=== PATIENT | male | born 2000 | race Two or more races ===

== ENCOUNTER 2025-02-09 19:50 | Emergency (ER) | payer SELFPAY ==
--- NOTE | 2025-02-09 20:14 | PC.NURSE ---
NO ANSWER IN LOBBY WHEN CALLED FOR VITAL SIGNS
--- NOTE | 2025-02-09 20:29 | PC.NURSE ---
NO ANSWER IN LOBBY WHEN CALLED FOR VITAL SIGNS
[2025-02-09 21:37] VITALS: BP 156/98; PULSE 116; RESP 18; TEMP 37.6; O2SAT 98; BMI 34.9
--- NOTE | 2025-02-09 21:52 | PD.EDADULT ---
ED General RME/HPI General Chief complaint: Alcohol Stated complaint: INTOXICATED, HALLUCINATING Time Seen by Provider: 02/09/25 21:51 Arrival date/time: 02/09/25 19:50 CC: Bizarre behavior HPI patient presents to the ER finally signed and after the first visit to the ER waiting room. The patient has been drinking beer for years. Family member stated the last 3 days his behavior has become much more bizarre. He has decreased the amount of alcohol he is drinking but they are not sure what else he is taking. The patient has not been violent or threatening but he has had emotional outbursts and cannot be controlled. He is responding to all questions with nodding whether appropriate responses are not. Patient is observed ambulating but is not answering questions appropriately. Related Data Allergies Allergy/AdvReac Type Severity Reaction Status Date / Time No Known Allergies Allergy Verified 02/09/25 19:54 Review of Systems Review of Systems ROS Unobtainable: unobtainable due to mental status Past Medical History Social History SMOKING STATUS: Never smoker ED Exam Narrative Physical exam: [General: Obese appears not in any acute distress Head normocephalic HEENT: PERRLA EOMs are intact tracking mouth pink moist membranes uvula is midline swallow symmetrical. All the subsystems of ATTR within acceptable limits Neck is supple nontender Chest equal chest rise nontender to palpation Respiratory: Clear to auscultation no wheezes crackles or rubs CV: Rate rhythm is regular, tachycardic, no murmurs rubs or clicks Abdomen is distended secondary to body habitus soft nontender no masses positive bowel sounds all 4 quadrants Back: No CVA tenderness no spinous process tenderness from cervical spine thoracic and lumbar spine Skin: Intact no petechiae rash induration ulceration or crepitus Extremities: Moving all extremity against resistance cap refill less than 2 seconds neurosensory intact Neuro: Awake alert responding to all questions with nodding yes even though the questions were not related to a yes response. Course Quality Measures none Orders Category Date Time Status CT head/brain wo con Stat Exams 02/09/25 22:48 Completed Alcohol, Blood Medical Stat Lab 02/09/25 22:04 Completed CBC Stat Lab 02/09/25 22:04 Completed CMP [Comprehensive Metabolic Panel] Stat Lab 02/09/25 22:04 Completed Drug Screen,Urine Stat Lab 02/09/25 22:42 Completed PT [Prothrombin Time with INR] Stat Lab 02/09/25 22:04 Completed PTT [Partial Thromboplastin Time] Stat Lab 02/09/25 22:04 Completed Diazepam Inj [Valium Inj] Med 02/09/25 23:03 Discontinued 10 mg IM X1 ONE Vital Signs Vital signs: Vital Signs Temperature 99.7 F 02/09/25 21:37 Pulse Rate 116 H 02/09/25 21:37 Respiratory Rate 18 02/09/25 21:37 Blood Pressure 156/98 H 02/09/25 21:37 Pulse Oximetry (%) 98 02/09/25 21:37 Oxygen Delivery Method Room Air 02/09/25 21:37 Discharge Plan Plan Patient Disposition: HOME (Self Care) Discharge Disposition comment: Stable for discharge home Patient condition on transfer: Stable Prescriptions/Referrals Referrals: [facility] [Provider Group] - In 1 week Problem List Clinical Impression: Agitation Patient/Caregiver Discharge Instructions Discharge Activity: activity as tolerated Education Materials: Alcoholism: Myths and Facts, Alcoholism Resources, Alcoholism: Getting Help, Alcohol Addiction Additional Instructions: Please return to the emergency department if you have any worsening or any further medical problems and we will help you. Otherwise you should follow-up with your primary care doctor within the next several days. When you are ready to get sober you should return to this ER and we can help you. Print Language: Icelandic Stand Alone Forms: Tiffanie Award Info., Patient Portal Info Letter MDM Clinical Information Provided by: patient and family Medical Records reviewed [facility] Meds/Rx considered, not ordered None Labs/Rad/Tests considered, not ordered None Medication Administration(s) Medication Administration History Discontinued Medications Diazepam (Diazepam Inj 5 Mg/Ml Vial 2 Ml) 10 mg IM X1 ONE Stop: 02/09/25 23:04 Last Admin: 02/10/25 00:28 Dose: 10 mg Documented By: ZANE
[2025-02-09 22:17] LABS: Basophils # (Auto) 0.1 Thou/mm3 (0.0-0.2); Basophils % (Auto) 0 % (0-2.5); Eosinophils % (Auto) 0 % (0-10); Hemoglobin 17.4 g/dL (13.5-16.0); Immature Granulocytes % (Auto) 1 % (0-0); Immature Granulocytes Auto 0.06 Thou/mm3 (0.00-0.00); Lymphocytes % (Auto) 8 % (10-50); Mean Corpuscular HGB Conc 37.8 g/dl (31.0-37.0); Mean Corpuscular Hemoglobin 32.2 pg (25.0-35.0); Mean Corpuscular Volume 85 fL (80-100); Monocytes # (Auto) 0.8 Thou/mm3 (0.0-0.8); Monocytes % (Auto) 6 % (0-12); Neutrophils # (Auto) 11.3 Thou/mm3 (1.8-7.7); Neutrophils % (Auto) 85 % (37-80); Nucleated Red Blood Cell % 0 /100 WBC (0); Platelet Count 209 Thou/mm3 (140-440); RDW Standard Deviation 38.8 fL (35.1-43.9); Red Blood Count 5.41 Miln/mm3 (4.50-5.90); White Blood Count 13.3 Thou/mm3 (3.8-10.6)
[2025-02-09 22:27] LABS: Partial Thromboplastin Time 23.7 Seconds (22.0-36.0); Prothrombin Time 11.4 Seconds (9.0-12.2)
[2025-02-09 22:31] LABS: Alanine Aminotransferase 56 U/L (10-49); Albumin, Serum 5.5 gm/dL (3.5-5.0); Albumin/Globulin Ratio 1.9 (1.2-2.2); Alcohol, Blood Medical < 3.0 mg/dL (0-10.0); Alkaline Phosphatase 67 U/L (46-116); Anion Gap 9 (7-16); Aspartate Amino Transferase 46 U/L (0-34); BUN/Creatinine Ratio 10 Ratio (12-20); Bilirubin,Total 2.4 mg/dL (0.3-1.2); Blood Urea Nitrogen 9 mg/dL (9-23); Calcium 10.9 mg/dL (8.3-10.6); Calcium (Corrected) 10.9 mg/dL (8.5-10.1); Carbon Dioxide 24.9 mMol/L (20.0-31.0); Chloride 100 mMol/L (98-107); Creatinine (Component) 0.9 mg/dL (0.6-1.3); Estimated Creatinine Clearance 145.6 mL/min (>60); Globulin 2.9 gm/dL (2.3-3.5); Glucose 112 mg/dL (74-106); Osmolality,Calculated 267 (275-295); Potassium 3.6 mMol/L (3.4-5.1); Sodium 134 mMol/L (136-145); Total Protein 8.4 gm/dL (5.7-8.2); eGFR > 60 See Note
--- NOTE | 2025-02-09 22:48 | XR_ITS ---
Examination: CT brain head without contrast. 2-D sagittal coronal reconstructions Date and time of exam:February 10, 2025 0054 hours INDICATIONS: Altered mental status today with hallucinations CTDI: vol (mGy):51.5 DLP: (mGycm):969 Technique: Multiple CT axial sections of the brain have been obtained, 5 mm slice thickness. Contrast has not been administered. 2-D sagittal, coronal reconstructions have been obtained Low dose protocols were performed. One or more of the following dose reduction techniques were used; automated exposure control, adjustment of the mA and/or KV according to patient size, use of iterative reconstruction technique. Findings: No significant ventricular enlargement. Intra-axial or extra-axial hemorrhage density is not seen. No mass effect or midline shift Basal cisterns are not remarkable. Fourth ventricle is midline. Cranial vault intact. Impression: Negative for acute hemorrhage, mass effect or midline shift
--- NOTE | 2025-02-09 23:05 | EDNOTE_ITS ---
Emergency Room Addendum <Diana Marks - Last Filed: 02/10/25 05:50> Addendum Narrative: 2300: Care assumed from Anirudh Shelby NP (emergency mid-level provider). Past medical, surgical, social and family history reviewed. Vitals and home medications reviewed. Results and treatment plan discussed. They will assume the care of the patient at this time and will follow the patient, pending Toxicology results. RADIOLOGY Head CT: Pending official radiology report. 0210: I have spoken with the patient and discussed today?s findings, in addition to providing specific details for the plan of care. Questions are answered and there is an agreement with the plan. Re-assessment at the time of disposition demonstrates that the patient is in no acute distress. The patient has remained stable throughout the entire ED visit and is without objective evidence for acute process requiring urgent intervention or hospitalization. The patient is stable for discharge; counseling is provided and documented as above, discussing symptomatic treatment and specific conditions for return. <Mabel Darien - Last Filed: 02/11/25 04:40> Addendum Narrative: 2300: Care assumed from Anirudh Shelby NP (emergency mid-level provider). Past medical, surgical, social and family history reviewed. Vitals and home medications reviewed. Results and treatment plan discussed. I will assume the care of the patient at this time and will follow the patient, pending toxicology results. UDS and Blood Alcohol are negative. RADIOLOGY Head CT: [place] Preliminary Report Draft Patient: FABIO TAVERAS. Record#: [id number] Birthdate: 2000 Age/Sex: 24 / M Location: [facility] Attending Dr: Ordering Physician: Date of Service: Procedure(s): Accession Number(s): cc: ~ CT scan of the head without intravenous contrast (axial sections with sagittal and coronal reformats). February 10, 2025 0054 hours Clinical History: AMS No prior study is available for comparison. Findings: No evidence of intracranial hemorrhage, mass effect or midline shift. The ventricles and CSF spaces are unremarkable. The calvarium is unremarkable. There is a small retention cyst or polyp in the right maxillary sinus.The mastoid air cells and the other visualized paranasal sinuses are otherwise clear. Impression: No evidence of intracranial hemorrhage, mass effect or midline shift. Report Electronically Signed By: Lai Esquivel 02/10/2025 1:56:25 AM [EST] 0210: I have spoken with the patient and discussed today?s findings, in addition to providing specific details for the plan of care. Questions are answered and there is an agreement with the plan. Re-assessment at the time of disposition demonstrates that the patient is in no acute distress. The patient has remained stable throughout the entire ED visit and is without objective evidence for acute process requiring urgent intervention or hospitalization. The patient is stable for discharge; counseling is provided and documented as above, discussing symptomatic treatment and specific conditions for return.
[2025-02-09 23:32] LABS: Amphetamine/Methamp Scrn,U Negative (Negative); Barbiturate Screen,Urine Negative (Negative); Benzodiazepines Screen,Urine Negative (Negative); Benzoylecgonine Screen, Ur Negative (Negative); Opiate Screen,Urine Negative (Negative); THC Screen,Urine Negative (Negative)
[2025-02-09 23:42] LABS: Fentanyl Screen,Urine Negative (Negative)
[2025-02-10] MEDS: DIAZEPAM INJ 5 MG/ML VIAL 2 ML 10 MG IM (00:28)
[2025-02-10 00:32] VITALS: BP 133/84; PULSE 71; RESP 18; O2SAT 98
--- NOTE | 2025-02-10 00:34 | PC.NURSE ---
pt resting quietly. Friends are at bedside. Pt is GCS 15. appears in NAD.
--- NOTE | 2025-02-10 01:56 | PRELIM_ITS ---
CT scan of the head without intravenous contrast (axial sections with sagittal and coronal reformats). February 10, 2025 0054 hours Clinical History: AMS No prior study is available for comparison. Findings: No evidence of intracranial hemorrhage, mass effect or midline shift. The ventricles and CSF spaces are unremarkable. The calvarium is unremarkable. There is a small retention cyst or polyp in the right maxillary sinus.The mastoid air cells and the other visualized paranasal sinuses are otherwise clear. Impression: No evidence of intracranial hemorrhage, mass effect or midline shift. Report Electronically Signed By: Lai Esquivel 02/10/2025 1:56:25 AM [EST]
--- NOTE | 2025-02-10 02:05 | PC.NURSE ---
pt is A&O x4. Resting quietly. Friend at bedside.
[2025-02-10 02:21] VITALS: PULSE 74; RESP 18; TEMP 36.8; O2SAT 98
== END 2025-02-10 02:24 | disposition home or self-care (01) ==
PROVIDERS: Registered Nurse General Practice; Emergency Provider Emergency Medicine
DX: R45.1 Restlessness and agitation (principal); R46.2 Strange and inexplicable behavior; R41.82 Altered mental status, unspecified
CPT/HCPCS: 36415; 70450; 80053; 80307; 80320; 85025; 85610; 85730; 96372; 99284; J3360; G0480

== ENCOUNTER 2025-02-10 10:35 | Emergency (ER) | payer MEDICAID, SELFPAY ==
[2025-02-10 10:38] VITALS: BMI 29.0
[2025-02-10 10:45] VITALS: BP 145/66; PULSE 108; RESP 18; TEMP 38.2; O2SAT 97
--- NOTE | 2025-02-10 11:03 | EDNOTE_ITS ---
ED Psych RME/HPI General Chief Complaint: Psychiatric Symptoms Stated Complaint: HARM TO SELF Time Seen by Provider: 02/10/25 10:52 Arrival date/time: 02/10/25 10:35 Limitations: no limitations RME / HPI RME / HPI Narrative: 24 year old male presents to the ED brought in by family for bizarre behaviors and hallucinations. Patients family report patient was evaluated here yesterday also for bizarre behaviors and was discharged home at 02:00 AM after given a shot . Patients family state since arriving home he has not slept. Also report the patient is punching and scratching himself. While in the ED, patient reports he hears voices though unable to decipher what they say and feels there are people out to kill him. Patient additionally admits to using a drug but says I don't know what I used . When asked why he is hitting himself he responds I don't know . No other associated symptoms or complaints were reported. Denies homicidal ideation. Related Data Allergies Allergy/AdvReac Type Severity Reaction Status Date / Time No Known Allergies Allergy Verified 02/09/25 19:54 Review of Systems Review of Systems Narrative Review of Systems: GEN: No fever, no chills, no weight loss EYES: No discharge, no visual changes, no pain HEENT: No ear pain, no congestion, no sore throat PULM: No shortness of breath, no cough, no congestion CV: No chest pain, no dyspnea on exertion, no palpitations GI: No nausea, no vomiting, no diarrhea, no pain, no constipation : No frequency, no urgency, no dysuria MUSC/SKEL: No joint pain, no back pain SKIN: No rash PSYCH: +auditory hallucinations, +hitting self HEME/LYMPH: No easy bleeding or bruising tendencies NEURO: No weakness, no headache Past Medical History Past Medical History CARDIAC: Negative Congestive Heart Failure RESPIRATORY: Negative Chronic Obstructive Pulmonary Disease (COPD) GENITOURINARY: Negative Renal Disease ENDOCRINE: Negative Diabetes Mellitus Type 1 or Diabetes Mellitus Type 2 Social History SMOKING STATUS: Never smoker ED Exam General Limitations: Present no limitations General appearance: Present alert, anxious and other (There are multiple areas of injuries throughout body) Head Head exam: Present normocephalic Eye Eye exam: Present normal appearance, PERRL and EOMI ENT ENT exam: Present normal exam, normal oropharynx and mucous membranes moist Neck Neck exam: Present normal inspection, full ROM and trachea midline Chest Chest inspection: Present normal inspection and symmetric chest wall rise Respiratory Respiratory exam: Present normal lung sounds bilaterally Cardiovascular Cardiovascular exam: Present regular rate, normal rhythm and normal heart sounds Abdominal Exam Abdominal exam: Present soft and normal bowel sounds Extremities Exam Extremities exam: Present full ROM Back Exam Back exam: Present full ROM Neurological Exam Neurological exam: Present alert, oriented X3 and CN II-XII intact Psychiatric Psychiatric exam: Present normal affect and normal mood Skin Skin exam: Present warm, dry, intact and normal color Course Quality Measures none Orders Category Date Time Status CT head/brain wo con Stat Exams 02/10/25 11:01 Completed Alcohol, Blood Medical Stat Lab 02/10/25 11:16 Completed CBC Stat Lab 02/10/25 11:16 Completed CMP [Comprehensive Metabolic Panel] Stat Lab 02/10/25 11:16 Completed Drug Screen,Urine Stat Lab 02/10/25 12:24 Completed PT [Prothrombin Time with INR] Stat Lab 02/10/25 11:16 Completed DiphenhydrAMINE INJ [Benadryl Inj] Med 02/10/25 11:01 Discontinued 25 mg IM X1 ONE Haloperidol Lactate [Haldol Inj] Med 02/10/25 11:01 Discontinued 5 mg IM X1 ONE Vital Signs Vital signs: Vital Signs Temperature 100.7 F H 02/10/25 10:45 Pulse Rate 108 H 02/10/25 10:45 Respiratory Rate 18 02/10/25 10:45 Blood Pressure 145/66 H 02/10/25 10:45 Pulse Oximetry (%) 97 02/10/25 10:45 Oxygen Delivery Method Room Air 02/10/25 10:45 Pulse ox is 97% on room air which is adequate. Psych MDM Narrative MDM Narrative:: Martha García am scribing for and in the presence of Dr. Shin. 24 year old male presented to the ED brought in by family for evaluation of bizarre behaviors. DDx: suspected methamphetamine use, acute psychosis, suicidal ideation, auditory hallucinations. Plan for CT head for possible injury otherwis e will do a soft work-up. Plan for mental health evaluation. Patient medically cleared for mental health evaluation. 1604: Patient has been evaluated by our ASW and has placed patient on a 5150 hold, at this time pending placement to LPS facility. 1800: Patient signed out to Dr. Concepcion pending LPS Facility placement. Patient data External records reviewed:: [facility] previous records (I reviewed ED visit from yesterday 02/08/2025 ) Clinical information provided by:: patient and family Social determinants that could affect healthcare access:: alcohol use Patient has the following chronic illnesses:: No chronic medical hx reported How is presenting disease/condition affected by chronic disease/condition?: no chronic disease Evaluation data The following diagnostics were reviewed and interpreted by me:: lab results and radiology exam(s) Lab and/or radiology exams considered but not ordered:: None Interpretation Summary: Ordering Physician: Rhonda Kevin MD Date of Service: 02/10/25 Procedure(s): CT head/brain wo con Accession Number(s): [id number] cc: Rhonda Kevin MD; Johnny Jacobs MD; NO PRIMARY/FAMILY,PHYSICIAN~ Examination: CT brain head without contrast. 2-D sagittal coronal reconstructions Date and time of exam:February 10, 2025 1257 hours Comparison February 10, 2025 0055 hours INDICATIONS: Altered mental status with hallucinations beginning this morning CTDI: vol (mGy):48.4 DLP: (mGycm):1005 Technique: Multiple CT axial sections of the brain have been obtained, 5 mm slice thickness. Contrast has not been administered. 2-D sagittal, coronal reconstructions have been obtained Low dose protocols were performed. One or more of the following dose reduction techniques were used; automated exposure control, adjustment of the mA and/or KV according to patient size, use of iterative reconstruction technique. Findings: No significant ventricular enlargement. Intra-axial or extra-axial hemorrhage density is not seen. No mass effect or midline shift Basal cisterns are not remarkable. Fourth ventricle is midline. Cranial vault intact. Impression: Negative for acute hemorrhage, mass effect or midline shift Advise clinical correlation follow-up accordingly Dictated By: Johnny Jacobs MD Signed By: <Electronically signed by Johnny Jacobs MD in OV> 02/10/25 1318 Medications / Prescriptions Medications or Prescriptions considered but not ordered:: None Medication administrations:: Medication Administration History Discontinued Medications Diphenhydramine HCl (Diphenhydramine Inj 50 Mg/Ml Vial) 25 mg IM X1 ONE Stop: 02/10/25 11:02 Last Admin: 02/10/25 11:17 Dose: Not Given Documented By: DB Non-Admin Reason: Cancelled by Provider Haloperidol Lactate (Haloperidol Lact Inj 5 Mg/Ml Vial) 5 mg IM X1 ONE Stop: 02/10/25 11:02 Last Admin: 02/10/25 11:17 Dose: Not Given Documented By: DB Non-Admin Reason: Cancelled by Provider See above Consultations Consultation(s) initiated? (list below): No Diagnosis Psych Differential Diagnosis: acute psychosis, suicidal ideation, bipolar disorder, depression, drug-induced psychotic disorder and acute anxiety Admission Indicated Admission indicated?: not indicated Admission Request Was there a request for admission?: No Disposition Plan Disposition Plan: other (specify) (Signed out to Dr. Concepcion pending [facility] facility placement. ) Discharge Plan Prescriptions/Referrals Referrals: No Primary/Family,Physician [Primary Care Provider] - In 1 week Patient/Caregiver Discharge Instructions Print Language: Setswana
[2025-02-10 11:27] LABS: Basophils % (Auto) 0 % (0-2.5); Eosinophils % (Auto) 0 % (0-10); Hematocrit 47.8 % (41.0-53.0); Hemoglobin 17.2 g/dL (13.5-16.0); Immature Granulocytes % (Auto) 0 % (0-0); Immature Granulocytes Auto 0.05 Thou/mm3 (0.00-0.00); Lymphocytes % (Auto) 8 % (10-50); Mean Corpuscular Hemoglobin 31.2 pg (25.0-35.0); Mean Corpuscular Volume 87 fL (80-100); Monocytes # (Auto) 0.9 Thou/mm3 (0.0-0.8); Monocytes % (Auto) 7 % (0-12); Neutrophils # (Auto) 10.3 Thou/mm3 (1.8-7.7); Neutrophils % (Auto) 84 % (37-80); Nucleated Red Blood Cell % 0 /100 WBC (0); Platelet Count 200 Thou/mm3 (140-440); RDW Standard Deviation 39.8 fL (35.1-43.9); Red Blood Count 5.51 Miln/mm3 (4.50-5.90); White Blood Count 12.3 Thou/mm3 (3.8-10.6)
[2025-02-10 11:39] LABS: INR 1.1 (0.9-1.3); Prothrombin Time 11.5 Seconds (9.0-12.2)
[2025-02-10 11:43] LABS: Alanine Aminotransferase 67 U/L (10-49); Albumin, Serum 5.4 gm/dL (3.5-5.0); Alkaline Phosphatase 67 U/L (46-116); Anion Gap 10 (7-16); Aspartate Amino Transferase 105 U/L (0-34); BUN/Creatinine Ratio 10 Ratio (12-20); Bilirubin,Total 3.1 mg/dL (0.3-1.2); Blood Urea Nitrogen 10 mg/dL (9-23); Calcium 10.4 mg/dL (8.3-10.6); Calcium (Corrected) 10.4 mg/dL (8.5-10.1); Carbon Dioxide 26.3 mMol/L (20.0-31.0); Chloride 100 mMol/L (98-107); Estimated Creatinine Clearance 112.3 mL/min (>60); Globulin 2.7 gm/dL (2.3-3.5); Glucose 141 mg/dL (74-106); Osmolality,Calculated 272 (275-295); Potassium 3.7 mMol/L (3.4-5.1); Sodium 136 mMol/L (136-145); Total Protein 8.1 gm/dL (5.7-8.2); eGFR > 60 See Note
[2025-02-10 12:43] LABS: Amphetamine/Methamp Scrn,U Negative (Negative); Barbiturate Screen,Urine Negative (Negative); Benzodiazepines Screen,Urine Positive (Negative); Benzoylecgonine Screen, Ur Negative (Negative); Fentanyl Screen,Urine Negative (Negative); Opiate Screen,Urine Negative (Negative); THC Screen,Urine Negative (Negative)
[2025-02-10 12:45] VITALS: BP 138/70; PULSE 120; RESP 18; TEMP 37.1; O2SAT 96
[2025-02-10 13:21] LABS: Alcohol, Blood Medical < 10.0 mg/dL (0-10.0)
--- NOTE | 2025-02-10 13:44 | PC.CC ---
Patient was BIB-Family for mental health evaluation upon patient attempting self harm, hallucinations. It was reported that patient was present in the ED yesterday for similar reasons. Upon medical clearance patient will have a mental health evaluation.
[2025-02-10 15:46] VITALS: BP 134/86; PULSE 99; RESP 18; TEMP 36.8; O2SAT 97
--- NOTE | 2025-02-10 15:53 | PC.CC ---
Patient is a 24 year-old male who presents to the hospital for a mental health evaluation due to paranoia and self-harm. Fausto met with patient [id number] to complete assessment. ASW introduced self, role, and reason for assessment. At bedside is patient?s father Loreto Landry and brother, Asa Landry ; patient provided consent for father and brother to remain in room during assessment. ASW disclosed limits of confidentiality as well. Patient appeared alert and oriented to self and place not to situation. Patient made little eye contact with this telegraphic typewriter operator. This telegraphic typewriter operator had to ask patient multiple times to remove the sheet from his face. Patient presents dishelved and reports the last time he took a shower was on Saturday. ASW explored with the patient if he knew the reason why he is at the hospital. The patient was unable to provide a reason as to why he was present and reports he has not slept in two days. Patient reports auditory hallucinations such as birds speaking to him and singing and voices talking to him. This telegraphic typewriter operator ask the patient what the voices tell him but he is unable to tell this telegraphic typewriter operator what they tell him. At the time of encounter patient denied suicidal and homicidal ideations and visual hallucinations. Patient reports he has a lot of stress when prompted to answer what type of stress patient was unable to provide an answer smiled and covered his face. ASW asked patient if he ever had a suicide attempt patient initially answered yes then retracted and stated no. Patient is able to complete his own ADLs and is ambulatory. Per father and brother, they report the patient has not slept for the past 2 days and this is not his baseline. Father reports that patient was paranoid and stating ?Don?t go outside because they are going to kill you.? Patient made multiple statements about not being able to go to work because they were going to kill him. Father reports patient has no history of mental health and has never been placed on a 5150-hold to his knowledge. Patient scored low-risk on [place] Screening. Upon clinical consultation with EXERCISE EQUIPMENT REPAIR TECHNICIAN, Park Meeks patient will be placed on a 5150-hold for [facility]. ASW provided patient with advisement and explained the process for him being transferred to an LPS Facility. At bedside was patient?s father and brother. ASW provided update to of 5150-hold and discharge patient to LPS Facility Dr. Shin, pulp beater Niya, and bedside SONYA Walker. ASW to send referral to LPS Facilities via [employer].
[2025-02-10 18:14] VITALS: BP 148/97; PULSE 108; RESP 17; TEMP 36.7; O2SAT 96
--- NOTE | 2025-02-10 19:17 | PD.EDADDENDU ---
Emergency Room Addendum Addendum Narrative: 1800: Care assumed from Dr. Shin the previous shift emergency physician. Past medical, surgical, social and family history reviewed. Vitals and home medications reviewed. Results and treatment plan discussed. I will assume the care of the patient at this time and will follow the patient, pending psychiatric placement. Please refer to the emergency department record for history and examination from initial visit. Observation began at 1800 and was necessary in order to determine acceptance for psychiatric evaluation. 2150: Triston gallegos called overhead due to the patient trying to climb the rivera, is stripping naked, and is not following commands. Haldol and Benadryl ordered. 0: Triston gallegos called overhead due to the patient displaying inappropriate behavior and playing with his penis. Patient placed in 4-point restraints. Restraints were removed. Patient is resting comfortably and is not in any acute distress. Upon reevaluation, observation revealed that the patient is on a 5150 hold until we find psychiatric placement. Observation time ended at 0600. Total time of observation: 12 hours. 0600: Care signed out to Dr. Chambers (emergency physician). Past medical, surgical, social and family history reviewed. Vitals and home medications reviewed. Results and treatment plan discussed. They will assume the care of the patient at this time and will follow the patient, pending psychiatric placement.
[2025-02-10] MEDS: HALOPERIDOL LACT INJ 5 MG/ML VIAL IM (22:12)
[2025-02-10] MEDS: DiphenhydrAMINE INJ 50 MG/ML VIAL 25 MG IM (22:12)
[2025-02-11 05:00] VITALS: BP 111/67; PULSE 73; RESP 18; TEMP 36.8; O2SAT 97
--- NOTE | 2025-02-11 07:31 | PC.NURSE ---
REPORT GIVEN TO KESHAV AT [facility]
--- NOTE | 2025-02-11 07:48 | PC.CC ---
Patient was accepted to [facility], accepting information was provided by Estela, accepting is Dr. Stiles into [facility]. Patient was provided with accepting information. ASW called his father and notified him of accepting information. ASW provided update discharge plan to [facility] Facility [facility] to Dr. Chambers, military technician Kathy, and bedside SONYA Treadwell.
--- NOTE | 2025-02-11 08:43 | PD.EDADDENDU ---
Emergency Room Addendum Addendum Narrative: 0600: Care assumed from Dr. Concepcion, the previous shift emergency physician. Past medical, surgical, social and family history reviewed. Vitals and home medications reviewed. I will assume the care of the patient at this time, pending LPS facility placement. The patient was placed in ED observation care at 0600 02/11/2025. While in ED observation the pt will have access to water, food, and personal hygiene. If the pt takes home medication(s), they will be continued in ED observation. Please refer to the emergency department record for history and examination from initial visit.?The following addendum documentation note is intended to reflect any pending information, findings, or radiology results not included in the patient?s initial chart. 0738: Patient has been accepted by Dr. Stiles for transfer at [facility]. EMS p/u 10:00 am.
[2025-02-11 09:20] VITALS: BP 137/82; PULSE 94; RESP 16; TEMP 36.7; O2SAT 97
--- NOTE | 2025-02-11 10:03 | PC.NURSE ---
REPORT GIVEN TO [facility]
--- NOTE | 2025-02-11 10:22 | PC.NURSE ---
Recruiting Administrator Yunior requesting confirmation that patient does not need covid test, Called [facility], Spoke with [place] at [facility] states no bediside covid test needed if patient has no s/s.
== END 2025-02-11 10:21 ==
PROVIDERS: Nurse Practitioner Primary Care; Emergency Provider Emergency Medicine
DX: R44.3 Hallucinations, unspecified (principal); R41.82 Altered mental status, unspecified; Z78.1 Physical restraint status; Z75.1 Person awaiting admission to adequate facility elsewhere
CPT/HCPCS: 36415; 70450; 80053; 80307; 80320; 80329; 85025; 85610; 90839; 96127; 96372; 99285; J1200; J1630; G0480